=== PATIENT | female | born 1985 | race Caucasian/White ===

== ENCOUNTER 2019-07-28 | Emergency (ER) | payer OTHER, BC ==
[~2019-07-28] MED LIST: AMOXICILLIN/CL875 MG OR; AUGMENTINES600 PO; CHERATUSSIN OR; CIPROFLOXACN500 MG PO; HYCODAN1 ML PO; MEDDOSEPAK PO; NO MEDS; NUVARING; OMNICEF250 MG/5 M OR; ULTRAM50 M1 OR; VENTOLIN HFA IN; ZYRTEC-D ALG PO
== END 2019-07-28 11:08 | disposition home or self-care (01) | DRG 552 ==
DX: S16.1XXA Strain of muscle, fascia and tendon at neck level, initial encounter (principal); M54.5 Low back pain; V53.5XXA Driver of pick-up truck or van injured in collision with car, pick-up truck or van in traffic accident, initial encounter

== ENCOUNTER 2021-12-22 07:28 | Day surgery (SDC) | payer BC ==
[~2021-12-22] VITALS: Ht 162.6 cm; Wt 81.6 kg
[~2021-12-22 07:28] MED LIST changes: +BUPROPN HCL150 MG PO
[2021-12-22 13:09] VITALS: BP 103/68
== END 2021-12-22 13:25 | disposition home or self-care (01) | DRG 502 ==
LOC: ORM 07:28
PROVIDERS: ATTEND Orthopaedic Surgery
PROC: 0LM14ZZ Reattachment of Right Shoulder Tendon, Percutaneous Endoscopic Approach (ICD-10-PCS; principal; 2021-12-22)
PROC: 0LQ14ZZ Repair Right Shoulder Tendon, Percutaneous Endoscopic Approach (ICD-10-PCS; 2021-12-22)
PROC: 0LS34ZZ Reposition Right Upper Arm Tendon, Percutaneous Endoscopic Approach (ICD-10-PCS; 2021-12-22)
PROC: 0RHJ44Z Insertion of Internal Fixation Device into Right Shoulder Joint, Percutaneous Endoscopic Approach (ICD-10-PCS; 2021-12-22)
PROC: 0RNJ4ZZ Release Right Shoulder Joint, Percutaneous Endoscopic Approach (ICD-10-PCS; 2021-12-22)
DX: S43.431A Superior glenoid labrum lesion of right shoulder, initial encounter (principal); M75.101 Unspecified rotator cuff tear or rupture of right shoulder, not specified as traumatic; M75.51 Bursitis of right shoulder; M25.811 Other specified joint disorders, right shoulder; X58.XXXA Exposure to other specified factors, initial encounter
CPT/HCPCS: C9290; J0131